=== PATIENT | female | born 1985 | race Caucasian/White ===

== ENCOUNTER 2018-03-16 11:51 | Emergency (ER) | payer OTHER ==
[~2018-03-16] VITALS: Ht 162.6 cm; Wt 115.7 kg
[~2018-03-16 11:51] MED LIST: ALPRAZOLAM0.5 MG PO; IBUPROFEN600 M1 PO; METFORMIN1000 MG PO; SYNTHROID0.125 MG PO; VITAMIN B COMPL1 TA1 PO; VITAMIN B12500 MCG PO
--- NOTE | 2018-03-16 13:15 | ED HEADACHE COMPLAINT ---
History of Present Illness General Chief Complaint: General Adult Stated Complaint: ANXIETY Source: patient Exam Limitations: no limitations Vital Signs & Intake/Output Vital Signs & Intake/Output Vital Signs Date Time Temp Pulse Resp B/P B/P Pulse O2 O2 Flow FiO2 Mean Ox Delivery Rate 03/16 1451 97.4 77 18 107/55 100 03/16 1156 96.2 99 18 120/83 98 Room Air Allergies Coded Allergies: Sulfa (Sulfonamide Antibiotics) (Severe, HIVES 10/31/16) Reconcile Medications Cyanocobalamin (Vitamin B12) 500 MCG TAB 1 TAB PO DAILY SUPPLEMENT (Reported) Ibuprofen 600 MG TABLET 1 TAB PO Q6PRN PRN pain with food Levothyroxine Sodium (Synthroid) 0.125 MG TAB 1 TAB PO DAILY AC THYROID ( Reported) METFORMIN HCL (Metformin) 1,000 MG TABLET 1 TAB PO BID PCOS (Reported) VIT B COMP/C/FA/IRON/VIT E (Vitamin B Complex Tablet) 500-400-18 TABLET 1 TAB PO DAILY SUPPLEMENT (Reported) Triage Note: 32 YO FEMALE TO TRIAGE C/O FEELING DIZZY THIS AM AFTER STADNING UP. DENIES DIZZINESS AT THIS TIME. REPORTS SHE UST FOUND OUT HER SISTER LAST PM AND "IM STILL IN SHOCK" "I FEEL LIKE I AM GOING TO HAVE A PANIC ATTACK ANY MINUTE" Triage Nurses Notes Reviewed? yes Onset: Morning Duration: constant Timing: single episode today Quality/Severity: moderate, constant, pressure Severity Numbers: 8 No Modifying Factors: none Modifying Factors: Improves With: rest. Worsens With: movement. Associated Symptoms: vision changes : No Patient currently breastfeeds: No HPI: 32-year-old female with history of hypothyroidism, endometriosis and polycystic kidneys presents to emergency department complaining of a right-sided headache which started this morning. Patient states she's also been dizzy and her vision feels off. She tried wearing her glasses which are not helping. The headache has been constant since onset. It is localized to the right side of her head. She has not taken any [id number] medications for the pain. She has no history of migraines. States the last time she had a headache like this she was and dehydrated. This is not the worst headache of her life. She has no associated numbness or tingling in her extremities. No chest pain or shortness of breath. No nausea or vomiting. Patient states she is also very anxious due to the fact that her sister this morning. Her sister lived in [place] and she has no way of getting there and is very concerned. She denies SI or HI. (Kirt Amaro PA-C) Past History Travel History Traveled to [place] past 21 day No Medical History Any Pertinent Medical History? 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 No (Kirt Amaro PA-C) Review of Systems Review of Systems Constitutional: Reports: see HPI. Eyes: Reports: see HPI. Ears, Nose, Throat, Mouth: Reports: no symptoms. Respiratory: Reports: no symptoms. Cardiovascular: Reports: no symptoms. Gastrointestinal/Abdominal: Reports: no symptoms. Genitourinary: Reports: no symptoms. Musculoskeletal: Reports: no symptoms. Skin: Reports: no symptoms. Neurological/Psychological: Reports: see HPI, headache. Hematologic/Endocrine: Reports: no symptoms. Endocrine: Reports: no symptoms. Immunologic/Allergic: Reports: no symptoms. All Other Systems: Reviewed and Negative (Kirt Amaro PA-C) Physical Exam Physical Exam General Appearance: well developed/nourished, no apparent distress, alert, awake Head: atraumatic, normal appearance Eyes: Bilateral: normal appearance, PERRL, EOMI. Ears, Nose, Throat: normal pharynx, normal ENT inspection Neck: normal inspection, supple Respiratory: normal breath sounds, chest non-tender, no respiratory distress, lungs clear Cardiovascular: regular rate/rhythm Gastrointestinal: normal bowel sounds, soft, non-tender Extremities: normal range of motion Psychiatric: awake, alert, oriented x 3, Anxious, No SI/HI. Cranial Nerves: cranial nerves II through XII are grossly intact. Coordination/Gait: normal finger to nose, normal gait Motor/Sensory: no motor/sensory deficits Skin: intact, normal color Core Measures Sepsis Present: No Sepsis Focused Exam Completed? No (Kirt Amaro PA-C) Progress Differential Diagnosis: carotid dissection, cav sinus thromb, cluster CORRALES, encephalitis, IC mass/tumor, intracranial Hem., meningitis, migraine CORRALES, musculoskeletal pain, SSS thrombosis, subarach. Hem., tension CORRALES Plan of Care: Orders Procedure Date/time Status CT HEAD WO IV CONTRAST 03/16 1319 Active Current Medications Sig/Desmond Start time Last Medication Dose Stop Time Status Admin Sodium Chloride 1,000 ML BOLUS ONE 03/16 1300 AC 03/16 (Normal Saline 0.9%) 03/16 1359 1319 Diagnostic Imaging: Viewed by Me: CT Scan. Discussed w/RAD: CT Scan. Radiology Impression: PATIENT: MARY KNIGHT PRESENT AGE: 32 PATIENT ACCOUNT NO: [id number] : 84 LOCATION: [facility] ORDERING PHYSICIAN: Kirt Amaro PA-C SERVICE DATE: 03/16/18 EXAM TYPE: CAT - CT HEAD WO IV CONTRAST EXAMINATION: CT HEAD WITHOUT CONTRAST CLINICAL INFORMATION: Migraine. COMPARISON: CT scan of the head dated 06/28/2010. TECHNIQUE: Contiguous axial imaging was performed from the skull base to vertex without intravenous administration of contrast. DLP: 616.38 mGy-cm FINDINGS: There is no evidence of acute intracranial hemorrhage or territorial infarction. No abnormal mass effect or midline shift is seen. Menjivar to white matter differentiation is well preserved. No extra-axial fluid collections are identified. The ventricles are normal in size. There is no abnormal attenuation within the brain parenchyma. The osseous structures and soft tissues are normal. The mastoid air cells and visualized portions of the paranasal sinuses are well aerated. IMPRESSION: No acute intracranial pathology. DICTATED BY: Love Solano MD DATE/TIME DICTATED:03/16/181415 REMOTE ENCODING OPERATIONS SUPERVISOR:ROLO DATE/ TIME TRANSCRIBED:03/16/181415 CONFIDENTIAL, DO NOT COPY WITHOUT APPROPRIATE AUTHORIZATION. <Electronically signed in Other Vendor System> SIGNED BY: Love Solano MD 03/16/18 1429 Initial ED EKG: none Comments: 32-year-old female with a right sided temporal headache since this morning. She has no history of headaches. She also had associated vision changes. A CAT scan was ordered which was negative. She had complete relief of her symptoms with Reglan and Benadryl. She is afebrile and well-appearing. She has no focal neuro deficits on exam. No reason to suspect meningitis or encephalitis. This is not SAH or ICH. Encourage patient to take Tylenol or Motrin which he has at home for pain. Symptoms likely related to anxiety given her sister just . She feels safe going home, denies si or hi. She will follow-up with her primary care doctor on Saturday. She is in agreement with plan of care. She will be discharged in stable condition. (Kirt Amaro PA-C) Departure Departure Disposition: HOME OR SELF CARE Condition: Stable Clinical Impression Primary Impression: Headache Secondary Impressions: Anxiety Referrals: Brenna ROMO,Gisela (PCP/Family) Additional Instructions: Your CT scan today was normal. You were given Reglan and Benadryl for your headache. Drink plenty of water throughout the day. Take Tylenol or Motrin for pain. Return immediately if you develop any new or worsening symptoms. Otherwise follow-up with your primary care doctor within 2-3 days. Departure Forms: Customer Survey General Discharge Information (Kirt Amaro PA-C) PA/DIRECTOR OUTPATIENT SERVICES Co-Sign Statement Statement: ED Attending supervision documentation- I saw and evaluated the patient. I have also reviewed all the pertinent lab results and diagnostic results. I agree with the findings and the plan of care as documented in the PA's/DIRECTOR OUTPATIENT SERVICES's documentation. x I have reviewed the ED Record and agree with the PA's/DIRECTOR OUTPATIENT SERVICES's documentation. [] Additions or exceptions (if any) to the PAs/DIRECTOR OUTPATIENT SERVICES's note and plan are summarized below: [] (Anna ROMO,Otto)
--- NOTE | 2018-03-16 14:25 | CT SCAN REPORT ---
EXAMINATION: CT HEAD WITHOUT CONTRAST CLINICAL INFORMATION: Migraine. COMPARISON: CT scan of the head dated 06/28/2010. TECHNIQUE: Contiguous axial imaging was performed from the skull base to vertex without intravenous administration of contrast. DLP: 616.38 mGy-cm FINDINGS: There is no evidence of acute intracranial hemorrhage or territorial infarction. No abnormal mass effect or midline shift is seen. Menjivar to white matter differentiation is well preserved. No extra-axial fluid collections are identified. The ventricles are normal in size. There is no abnormal attenuation within the brain parenchyma. The osseous structures and soft tissues are normal. The mastoid air cells and visualized portions of the paranasal sinuses are well aerated. IMPRESSION: No acute intracranial pathology.
[2018-03-16 14:51] VITALS: BP 107/55
== END 2018-03-16 15:00 ==
LOC: ERH 11:51
DX: R51 Headache (principal); F41.9 Anxiety disorder, unspecified
CPT/HCPCS: 96374; 96375; J1200; J2765